=== PATIENT | female | born 1980 | race Caucasian/White ===

== ENCOUNTER 2018-05-09 17:45 | Emergency (ER) | payer BC, OTHER ==
[2018-05-09 18:00] VITALS: BP 119/66
--- NOTE | 2018-05-09 18:22 | UC ---
Brandon Dailey Elizabeth, scribed for Sherman Hagen MD on 05/09/18 at 1804 . Cardiac HPI - HPI Summary HPI Summary: This patient is a 38 year old F presenting to [facility] with a chief complaint of intermittent, non-radiation chest pressure since 3 days ago. The patient notes that the pain feels like someone is sitting on her chest. The patient rates the pain 3-4/10 in severity. Symptoms aggravated by nothing. Symptoms alleviated by nothing. Patient reports shortness of breath. Patient has hx of gestational diabetes but notes that she has not checked her glucose level in several years. - History of Current Complaint Stated Complaint: CHEST PAIN Hx Obtained From: Patient Hx Last Menstrual Period: [id number] Onset/Duration: Gradual Onset, Lasting Days - 3 days, Still Present Timing: Intermittent Episodes Lasting: Initial Severity: Mild Current Severity: Mild Pain Intensity: 4 Character: Pressure/Squeezing Aggravating Factor(s): Nothing Alleviating Factor(s): Nothing Associated Signs & Symptoms: Positive: SOB - Allergy/Home Medications Allergies/Adverse Reactions: Allergies Allergy/AdvReac Type Severity Reaction Status Date / Time No Known Allergies Allergy Verified 05/09/18 18:00 PMH/Surg Hx/FS Hx/Imm Hx Endocrine History: Diabetes Other Endocrine History: gestational diabetes Other History Of: Negative For: Anticoagulant Therapy - Surgical History Surgical History: Yes Surgery Procedure, Year, and Place: X2, gastric sleve 11/2015 - Family History Known Family History: Positive: Hypertension, Diabetes - Social History Alcohol Use: Weekly Substance Use Type: None Smoking Status (MU): Light Every Day Tobacco Smoker Have You Smoked in the Last Year: No When Did the Patient Quit Smoking/Using Tobacco: 2013 - Immunization History Most Recent Influenza Vaccination: 2014 Most Recent Tetanus Shot: UP TO DATE Most Recent Pneumonia Vaccination: UNSURE Review of Systems Constitutional: Negative - NEGATIVE FEVER Respiratory: Shortness Of Breath Cardiovascular: Chest Pain Gastrointestinal: Negative - NEGATIVE VOMITING All Other Systems Reviewed And Are Negative: Yes Physical Exam - Summary Physical Exam Summary: VITAL SIGNS: Reviewed. GENERAL: Patient is a well-developed and nourished FEMALE who is lying comfortable in the stretcher. Patient is not in any acute respiratory distress. Patient is obese. HEAD AND FACE: Normocephalic EYES: PERRLA, EOMI x 2. EARS: Hearing grossly intact. MOUTH: Oropharynx within normal limits. NECK: Supple, trachea is midline, no adenopathy, no JVD, no carotid bruit. CHEST: Symmetric, no tenderness at palpation LUNGS: Clear to auscultation bilaterally. No wheezing or crackles. CVS: Regular rate and rhythm, S1 and S2 present, no murmurs or gallops appreciated. ABDOMEN: Soft, non-tender. Bowel sounds are normal. No abdominal abnormal pulsations. EXTREMITIES: Full ROM in all major joints, no edema, no cyanosis or clubbing. NEURO: Alert and oriented x 3. No acute neurological deficits. Speech is normal and follows commands. SKIN: Dry and warm Triage Information Reviewed: Yes Vital Signs: Initial Vital Signs Temp 97.0 F 05/09/18 17:55 Pulse 72 05/09/18 17:55 Resp 16 05/09/18 17:55 BP 119/66 05/09/18 17:55 Pulse Ox 100 05/09/18 17:55 Vital Signs Reviewed: Yes Diagnostics - EKG Cardiac Rate: NL - at 74 bpm Cardiac Rhythm: Sinus: Normal - NSR, no ST elevation, no change from EKG on 02/02 ST Segment: Normal - Assessment/Plan Course Of Treatment: 38-year-old female presents to the urgent care with a chief complaint of having chest pain. She reports that more than chest pain is chest pressure. She reports that is that someone is sitting on top of her chest. EKG shows a normal sinus rhythm without any ST elevations. She is obese , she does history of gestational diabetes and gastric bypass. Because the patient's symptoms have been persistent intermittently for the last 3 days I refer the patient to the emergency department for further workup and management. Patient declines ambulance transport. Patient is hemodynamically stable. - Differential Diagnoses - Chest Pain Differential Diagnosis/HQI/PQRI: Acute LA, ACS, Angina, CHF, Chest Wall, GI Disease, Lower Respiratory Infection - Clinical Impression Provider Diagnoses: Chest pain rule out acute coronary syndrome. Discharge - Sign-Out/Discharge Documenting (check all that apply): Discharge/Admit/Transfer - Discharge Plan Condition: Stable Disposition: HOME Discharge Disposition Comment: discharge home Patient Education Materials: Chest Pain (ED) Referrals: Kyle Bhandari MD [Primary Care Provider] - Additional Instructions: Patient will be discharged to the emergency department. The patient declined ambulance transfer. - Billing Disposition and Condition Condition: STABLE Disposition: Home The documentation as recorded by the Brandon alejandra Elizabeth accurately reflects the service I personally performed and the decisions made by me, Sherman Hagen MD.
== END 2018-05-09 18:09 | disposition home or self-care (01) ==
LOC: UCEAST 17:45
DX: R07.89 Other chest pain (principal); R06.02 Shortness of breath; Z86.32 Personal history of gestational diabetes; Z87.891 Personal history of nicotine dependence; Z82.49 Family history of ischemic heart disease and other diseases of the circulatory system; Z83.3 Family history of diabetes mellitus
CPT/HCPCS: 93005; 99212; G0463

== ENCOUNTER 2018-05-09 18:23 | Emergency (ER) | payer BC ==
[2018-05-09] MEDS ORDERED: Famotidine TAB* 20 MG PO ONE (18:56)
[2018-05-09 19:00] LABS: ABS Basophils 0.1 10^3/ul (0-0.2); ABS Eosinophils 0.1 10^3/ul (0-0.6); ABS Lymphocytes 1.9 10^3/ul (1.0-4.8); ABS Monocytes 0.5 10^3/ul (0-0.8); ABS Neutrophils 4.6 10^3/ul (1.5-7.7); ABS Nucleated RBC 0 10^3/ul; Eosinophil % 1.8 % (0-6); Hematocrit 36 % (35-47); Hemoglobin 11.7 g/dl (12.0-16.0); Lymphocyte % 26.5 % (25-47); Mean Corpuscular HGB Conc 33 g/dl (31-36); Mean Corpuscular Hemoglobin 27 pg (27-31); Mean Corpuscular Volume 82 fL (80-97); Mean Platelet Volume 9.3 um3 (7.4-10.4); Nucleated Red Blood Cells % 0; Platelet Count 213 10^3/ul (150-450); Red Blood Count 4.38 10^6/ul (4.00-5.40); Red Cell Distribution Width 15 % (10.5-15); White Blood Count 7.2 10^3/ul (3.5-10.8)
[2018-05-09] MEDS ORDERED: Aspirin 81 mg CHEW TAB* 81 MG TAB.CHEW PO ONE (19:03)
[2018-05-09 19:23] LABS: EGFR Non-African American 88.8 (>60)
--- NOTE | 2018-05-09 19:25 | RAD ---
INDICATION: Chest pain onset 3 days ago worse today midsternal; sensation of intense heartburn and pressure. COMPARISON: November 25, 2015 TECHNIQUE: Dual energy PA and routine lateral views of the chest were obtained. REPORT: Clear lungs and pleural spaces. Negative for pneumothorax. The heart, pulmonary vasculature, and mediastinal contours are unremarkable. Unremarkable osseous structures and soft tissue contours. IMPRESSION: No evidence for acute intrathoracic disease.
[2018-05-09] MEDS ORDERED: Lidocaine 2% VISCOUS* 15 ML UDC PO ONE (21:33)
[2018-05-09] MEDS ORDERED: Al Hydrox/Mg Hydrox/Simet LIQ* 30 ML UDC PO ONE (21:33)
--- NOTE | 2018-05-09 21:54 | ED ---
HPI Chest Pain - HPI Summary HPI Summary: 38-year-old female presents with chest pressure last 3 days. She states it feels like something is on her chest. She's never had this before. She states she feels anxious. She denies any palpitations. She admits to occasional shortness breath. She states the pain has persisted. States that Tums have helped. Has history of GERD. Also has history of a gastric sleeve. Denies any belly pain. No nausea or vomiting. Chest pressure does not radiate anywhere. It changes with positional changes. She has not tried anything for the pain. No family history of cardiac disease. No pain or swelling in her calf muscles. - History of Current Complaint Chief Complaint: EDChestPainROMI Time Seen by Provider: 05/09/18 18:36 Hx Last Menstrual Period: [id number] Pain Intensity: 5 - Additional Pertinent History Primary Care Physician: [id number] - Allergy/Home Medications Allergies/Adverse Reactions: Allergies Allergy/AdvReac Type Severity Reaction Status Date / Time No Known Allergies Allergy Verified 05/09/18 18:32 Home Medications: Home Medications FLUoxetine CAP* [PROzac CAP*] 60 mg PO DAILY 05/09/18 [History Confirmed ] PMH/Surg Hx/FS Hx/Imm Hx Endocrine/Hematology History: Reports: Hx Diabetes - GESTATIONAL DM Denies: Hx Anticoagulant Therapy, Hx Thyroid Disease Cardiovascular History: Denies: Hx Hypertension, Hx Pacemaker/ICD Respiratory History: Denies: Hx Asthma, Hx Chronic Obstructive Pulmonary Disease (COPD) GI History: Denies: Hx Ulcer History: Denies: Hx Renal Disease Sensory History: Reports: Hx Contacts or Glasses - GLASSES Denies: Hx Hearing Aid Opthamlomology History: Reports: Hx Contacts or Glasses - GLASSES Neurological History: Denies: Hx Dementia, Hx Seizures Psychiatric History: Reports: Hx Anxiety, Hx Depression Denies: Hx Substance Abuse - Surgical History Surgery Procedure, Year, and Place: X2, gastric sleve 11/2015 Hx Anesthesia Reactions: No - Immunization History Immunizations Up to Date: Yes Infectious Disease History: No Infectious Disease History: Reports: Hx Shingles Denies: Hx Hepatitis, Hx Human Immunodeficiency Virus (HIV), Traveled Outside the [place] in Last 30 Days - Family History Known Family History: Positive: Hypertension, Diabetes - Social History Alcohol Use: Weekly Substance Use Type: Reports: None Smoking Status (MU): Light Every Day Tobacco Smoker Have You Smoked in the Last Year: No Review of Systems Negative: Fever Positive: Chest Pain Negative: Shortness Of Breath, Cough All Other Systems Reviewed And Are Negative: Yes Physical Exam Triage Information Reviewed: Yes Vital Signs On Initial Exam: Initial Vitals Temp Pulse Resp BP Pulse Ox 98.3 F 67 13 119/75 100 05/09/18 18:25 05/09/18 18:25 05/09/18 18:25 05/09/18 18:25 05/09/18 18:25 Vital Signs Reviewed: Yes Appearance: Positive: Well-Appearing Skin: Positive: Warm, Dry Head/Face: Positive: Normal Head/Face Inspection Eyes: Positive: Normal, EOMI, JELENA, Conjunctiva Clear ENT: Positive: Normal ENT inspection, Pharynx normal, TMs normal Respiratory/Lung Sounds: Positive: Clear to Auscultation, Breath Sounds Present , Other - nontender chest wall Cardiovascular: Positive: Normal, RRR Abdomen Description: Positive: Nontender, Soft Bowel Sounds: Positive: Present Musculoskeletal: Positive: Normal Neurological: Positive: Normal Psychiatric: Positive: Normal Diagnostics - Vital Signs Vital Signs Temp Pulse Resp BP Pulse Ox 05/09/18 21:05 98.1 F 86 18 119/72 99 05/09/18 18:25 98.3 F 67 13 119/75 100 - Laboratory Lab Results: Lab Results 05/09/18 05/09/18 05/09/18 Range/Units 18:53 18:53 18:53 WBC 7.2 (3.5-10.8) 10^3/ul RBC 4.38 (4.00-5.40) 10^6/ul Hgb 11.7 L (12.0-16.0) g/dl Hct 36 (35-47) % MCV 82 (80-97) fL MCH 27 (27-31) pg MCHC 33 (31-36) g/dl RDW 15 (10.5-15) % Plt Count 213 (150-450) 10^3/ul MPV 9.3 (7.4-10.4) um3 Neut % (Auto) 64.0 (38-83) % Lymph % (Auto) 26.5 (25-47) % [place] % (Auto) 7.0 (0-7) % Eos % (Auto) 1.8 (0-6) % Baso % (Auto) 0.7 (0-2) % Absolute Neuts (auto) 4.6 (1.5-7.7) 10^3/ul Absolute Lymphs (auto) 1.9 (1.0-4.8) 10^3/ul Absolute Monos (auto) 0.5 (0-0.8) 10^3/ul Absolute Eos (auto) 0.1 (0-0.6) 10^3/ul Absolute Basos (auto) 0.1 (0-0.2) 10^3/ul Absolute Nucleated RBC 0 10^3/ul Nucleated RBC % 0 D-Dimer, Quantitative < 200 (Less Than 230) ng/mL Sodium 136 (135-145) mmol/L Potassium 3.6 (3.5-5.0) mmol/L Chloride 102 (101-111) mmol/L Carbon Dioxide 26 (22-32) mmol/L Anion Gap 8 (2-11) mmol/L BUN 13 (6-24) mg/dL Creatinine 0.74 (0.51-0.95) mg/dL Est GFR ( Amer) 114.2 (>60) Est GFR (Non-Af Amer) 88.8 (>60) BUN/Creatinine Ratio 17.6 (8-20) Glucose 94 (70-100) mg/dL Calcium 9.3 (8.6-10.3) mg/dL Total Bilirubin 0.30 (0.2-1.0) mg/dL AST 15 (13-39) U/L ALT 10 (7-52) U/L Alkaline Phosphatase 64 (34-104) U/L Troponin I 0.00 (<0.04) ng/mL C-Reactive Protein 4.56 (< 5.00) mg/L B-Natriuretic Peptide ( - 100) pg/mL Total Protein 6.9 (6.4-8.9) g/dL Albumin 3.8 (3.2-5.2) g/dL Globulin 3.1 (2-4) g/dL Albumin/Globulin Ratio 1.2 (1-3) /18 Range/Units 18:53 WBC (3.5-10.8) 10^3/ul RBC (4.00-5.40) 10^6/ul Hgb (12.0-16.0) g/dl Hct (35-47) % MCV (80-97) fL MCH (27-31) pg MCHC (31-36) g/dl RDW (10.5-15) % Plt Count (150-450) 10^3/ul MPV (7.4-10.4) um3 Neut % (Auto) (38-83) % Lymph % (Auto) (25-47) % [place] % (Auto) (0-7) % Eos % (Auto) (0-6) % Baso % (Auto) (0-2) % Absolute Neuts (auto) (1.5-7.7) 10^3/ul Absolute Lymphs (auto) (1.0-4.8) 10^3/ul Absolute Monos (auto) (0-0.8) 10^3/ul Absolute Eos (auto) (0-0.6) 10^3/ul Absolute Basos (auto) (0-0.2) 10^3/ul Absolute Nucleated RBC 10^3/ul Nucleated RBC % D-Dimer, Quantitative (Less Than 230) ng/mL Sodium (135-145) mmol/L Potassium (3.5-5.0) mmol/L Chloride (101-111) mmol/L Carbon Dioxide (22-32) mmol/L Anion Gap (2-11) mmol/L BUN (6-24) mg/dL Creatinine (0.51-0.95) mg/dL Est GFR ( Amer) (>60) Est GFR (Non-Af Amer) (>60) BUN/Creatinine Ratio (8-20) Glucose (70-100) mg/dL Calcium (8.6-10.3) mg/dL Total Bilirubin (0.2-1.0) mg/dL AST (13-39) U/L ALT (7-52) U/L Alkaline Phosphatase (34-104) U/L Troponin I (<0.04) ng/mL C-Reactive Protein (< 5.00) mg/L B-Natriuretic Peptide 14 ( - 100) pg/mL Total Protein (6.4-8.9) g/dL Albumin (3.2-5.2) g/dL Globulin (2-4) g/dL Albumin/Globulin Ratio (1-3) Result Diagrams: 06/18/18 18:53 05/09/18 18:53 Lab Statement: Any lab studies that have been ordered have been reviewed, and results considered in the medical decision making process. - Radiology chest Xray Interpretation: No Acute Changes Radiology Interpretation Completed By: Radiologist - EKG No standard instances Cardiac Rate: NL EKG Rhythm: Sinus Rhythm EKG Interpretation: sinus rhythm EKG Comparison: No Significant Change Re-Evaluation - Re-Evaluation First Eval Re-Evaluation Time: 19:45 Change: Improved Comment: feeling better after pepcid Chest Pain Course/Dx - Course Course Of Treatment: 38-year-old female presents with chest pressure last 3 days. She states it feels like something is on her chest. She's never had this before. She states she feels anxious. She denies any palpitations. She admits to occasional shortness breath. She states the pain has persisted. States that Tums have helped. Has history of GERD. Also has history of a gastric sleeve. Denies any belly pain. No nausea or vomiting. Chest pressure does not radiate anywhere. It changes with positional changes. She has not tried anything for the pain. No family history of cardiac disease. No pain or swelling in her calf muscles. On exam lungs clear to auscultation. Nontender chest. EKG normal. Chest x-ray normal. Labs within normal limits. 2 troponins negative. Gave him Pepcid and feeling better. Explained likely related to GERD. We'll prescribe Pepcid. Patient understands agrees with plan. - Chest Pain Differential Diagnosis/HQI/PQRI: Chest Wall, GI Disease, Lower Respiratory Infection, Pulmonary Embolism - Diagnoses Provider Diagnoses: Chest pain Discharge - Sign-Out/Discharge Documenting (check all that apply): Discharge/Admit/Transfer - Discharge Plan Condition: Good Disposition: HOME Prescriptions: Famotidine TAB* [Pepcid 20 MG TAB*] 20 mg PO BID #20 tab Patient Education Materials: Noncardiac Chest Pain (ED) Referrals: Kyle Bhandari MD [Primary Care Provider] - Additional Instructions: take pepcid twice a day Take tyenlol or ibuprofen eveyr 6 hours as needed for pain Follow up with primary within 5 days Return to ED if develop any new or worsening symptoms - Billing Disposition and Condition Condition: GOOD Disposition: Home
[2018-05-09 22:15] VITALS: BP 118/74
== END 2018-05-09 22:14 | disposition home or self-care (01) ==
LOC: ED 18:23
DX: R07.89 Other chest pain (principal); R06.02 Shortness of breath; K21.9 Gastro-esophageal reflux disease without esophagitis; Z86.32 Personal history of gestational diabetes; F41.9 Anxiety disorder, unspecified; F32.9 Major depressive disorder, single episode, unspecified; Z98.84 Bariatric surgery status; Z82.49 Family history of ischemic heart disease and other diseases of the circulatory system; Z83.3 Family history of diabetes mellitus; F17.200 Nicotine dependence, unspecified, uncomplicated
CPT/HCPCS: 36415; 71046; 80053; 83880; 84484; 85025; 85379; 86140; 93005; 99283; A9270-GY

== ENCOUNTER 2018-05-10 00:42 | Emergency (ER) | payer BC ==
[2018-05-10] MEDS ORDERED: Cyclobenzaprine TAB* 10 MG PO ONE (01:46)
[2018-05-10 02:33] VITALS: BP 97/58
--- NOTE | 2018-05-10 03:56 | ED ---
Geoffrey Dailey Tariq, scribed for Thang Martinez MD on 05/10/18 at 0143 . HPI Chest Pain - HPI Summary HPI Summary: A 38 y/o female presents to the ED c/o chest pain. Earlier today at home, pt noticed mild chest pain, however the pain became more worse during sleep, as she was turning/tossing in bed. Additionally Sx include SOB. She was D/C from ER a couple hours ago, but returns with same Sx of CP. Pt describes the pain as "unbearable pain, uncomfortable". To alleviate pain, pt took 4 ibuprofen, currently feels better but doesn't "feel 100%". Turning head to right and deep breathes aggravates the Sx. - History of Current Complaint Chief Complaint: EDChestWallPain Time Seen by Provider: 05/10/18 01:28 Hx Obtained From: Patient Hx Last Menstrual Period: [id number] Onset/Duration: Started Hours Ago, Still Present, Worse Since Timing: Constant, Lasting Hours Initial Severity: Mild Current Severity: Moderate Pain Intensity: 5 Pain Scale Used: 0-10 Numeric Chest Pain Location: Mid Sternal Aggravating Factor(s): Movement, Deep Breaths Alleviating Factor(s): Nothing Associated Signs and Symptoms: Positive: Chest Pain, Shortness of Breath - Additional Pertinent History Primary Care Physician: [id number] - Allergy/Home Medications Allergies/Adverse Reactions: Allergies Allergy/AdvReac Type Severity Reaction Status Date / Time No Known Allergies Allergy Verified 05/09/18 18:32 PMH/Surg Hx/FS Hx/Imm Hx Endocrine/Hematology History: Reports: Hx Diabetes - GESTATIONAL DM Denies: Hx Anticoagulant Therapy, Hx Thyroid Disease Cardiovascular History: Denies: Hx Hypertension, Hx Pacemaker/ICD Respiratory History: Denies: Hx Asthma, Hx Chronic Obstructive Pulmonary Disease (COPD) GI History: Denies: Hx Ulcer History: Denies: Hx Renal Disease Sensory History: Reports: Hx Contacts or Glasses - GLASSES Denies: Hx Hearing Aid Opthamlomology History: Reports: Hx Contacts or Glasses - GLASSES Neurological History: Denies: Hx Dementia, Hx Seizures Psychiatric History: Reports: Hx Anxiety, Hx Depression Denies: Hx Substance Abuse - Surgical History Surgery Procedure, Year, and Place: X2, gastric sleve 11/2015 Hx Anesthesia Reactions: No Infectious Disease History: No Infectious Disease History: Reports: Hx Shingles Denies: Hx Hepatitis, Hx Human Immunodeficiency Virus (HIV), Traveled Outside the [place] in Last 30 Days - Family History Known Family History: Positive: Hypertension, Diabetes - Social History Alcohol Use: Weekly Substance Use Type: Reports: None Smoking Status (MU): Light Every Day Tobacco Smoker Have You Smoked in the Last Year: No Review of Systems Negative: Fever Positive: Chest Pain Positive: Shortness Of Breath All Other Systems Reviewed And Are Negative: Yes Physical Exam - Summary Physical Exam Summary: Appearance: Well appearing, no pain distress Skin: warm, dry, reflects adequate perfusion Head/face: normal Eyes: EOMI, JELENA ENT: normal Neck: supple, non-tender Respiratory: mild wheezing left base Cardiovascular: RRR, pulses symmetrical, tenderness with palpation on right sternal border Abdomen: non-tender, soft Bowel Sounds: present Musculoskeletal: normal, strength/ROM intact Neuro: normal, sensory motor intact, A&Ox3 Triage Information Reviewed: Yes Vital Signs On Initial Exam: Initial Vitals Temp Pulse Resp BP Pulse Ox 97.4 F 89 16 129/86 100 05/10/18 00:44 05/10/18 00:44 05/10/18 00:44 05/10/18 00:44 05/10/18 00:44 Vital Signs Reviewed: Yes Diagnostics - Vital Signs Vital Signs Temp Pulse Resp BP Pulse Ox 05/10/18 00:44 97.4 F 89 16 129/86 100 - Laboratory Lab Statement: Any lab studies that have been ordered have been reviewed, and results considered in the medical decision making process. Chest Pain Course/Dx - Course Course Of Treatment: Patient had a full evaluation earlier in the day for same complaint. D-dimer, troponin 2, chest x-ray all negative. Patient states she was treated for GI cause however her pain returned after she returned home. She states that hurts when she moves and takes deep breaths. She took ibuprofen which largely resolved her discomfort. She does have some reproducible tenderness in the right side of the costosternal junction. Likely costochondritis. Added muscle relaxant and will continue NSAID. - Chest Pain Differential Diagnosis/HQI/PQRI: Chest Wall, GI Disease - Diagnoses Provider Diagnoses: Atypical chest pain, Costochondritis Discharge - Sign-Out/Discharge Documenting (check all that apply): Discharge/Admit/Transfer - Discharge - Discharge Plan Condition: Good Disposition: HOME Prescriptions: Cyclobenzaprine (NF) [Cyclobenzaprine 5 MG (NF)] 5 mg PO TID PRN #10 tab PRN Reason: chest wall pain Patient Education Materials: Costochondritis (ED) Forms: *Work Release Referrals: Kyle Bhandari MD [Primary Care Provider] - Additional Instructions: Ibuprofen as needed. Avoid heavy lifting. Deep breathing exercises every half hour. Return with fever, trouble breathing, worse or other concerns. - Billing Disposition and Condition Condition: GOOD Disposition: Home The documentation as recorded by the Geoffrey alejandra Tariq accurately reflects the service I personally performed and the decisions made by Juan singleton Kirk, MD.
== END 2018-05-10 02:31 | disposition home or self-care (01) ==
LOC: ED 00:42
DX: R07.89 Other chest pain (principal); M94.0 Chondrocostal junction syndrome [Tietze]; F17.200 Nicotine dependence, unspecified, uncomplicated
CPT/HCPCS: 99282; A9270-GY

== ENCOUNTER 2019-02-04 12:17 | Emergency (ER) | payer BC, MEDICAID ==
--- NOTE | 2019-02-04 13:16 | UC ---
Knee Pain HPI - HPI Summary HPI Summary: 38 y/o female presents to the urgent care c/o left knee pain s/p falling at her porch last night aroun 2030pm. Pt reports she was drinking last night and she slipped on a wet leaf and hit her left knee. She was able to bear weight last night. However this morning, she woke up and pain was worse. He took Ibuprofen 400mg PO to alleviate symptoms. Now she is walking w/ the help of a cane. Pain now is 8/10 w/ certain movements, special on the medial aspect of the knee w/o any radiation. Pt denies previous injury, numbness or tingling sensation over the left leg, calf pain, SOB, chest pain, abdominal pain, N/V/D. - History of Current Complaint Chief Complaint: UCLowerExtremity Stated Complaint: LT LEG INJURY Time Seen by Provider: 02/04/19 13:15 Hx Obtained From: Patient Hx Last Menstrual Period: 01/11/19 Onset/Duration: Gradual Onset, Lasting Days - 1 day, Still Present, Worse Since - this morning Severity Initially: Moderate Severity Currently: Moderate Pain Intensity: 8 Pain Scale Used: 0-10 Numeric Character: Sharp Aggravating Factor(s): Prolonged Standing, Stairs Alleviating Factor(s): Rest, OTC Meds - ibuprofen 400mg PO this morning aroun 0600AM Associated Signs And Symptoms: Positive: Swelling - mild. Negative: Redness, Bruising, Fever, Weakness, Numbness, Tingling Able to Bear Weight: Yes - Risk Factors Septic Arthritis Risk Factor: Negative Gout Risk Factor: Negative - Allergies/Home Medications Allergies/Adverse Reactions: Allergies Allergy/AdvReac Type Severity Reaction Status Date / Time No Known Allergies Allergy Verified 02/04/19 12:54 PMH/Surg Hx/FS Hx/Imm Hx Previously Healthy: Yes Psychological History: Anxiety, Depression Other History Of: Negative For: Anticoagulant Therapy - Surgical History Surgical History: Yes Surgery Procedure, Year, and Place: X2, gastric sleve 11/2015 - Family History Known Family History: Positive: Hypertension, Diabetes - Social History Occupation: Employed Full-time Lives: With Family Alcohol Use: Occasionally Substance Use Type: None Smoking Status (MU): Light Every Day Tobacco Smoker Have You Smoked in the Last Year: No When Did the Patient Quit Smoking/Using Tobacco: 2014 - Immunization History Most Recent Influenza Vaccination: 2014 Most Recent Tetanus Shot: UP TO DATE Most Recent Pneumonia Vaccination: UNSURE Review of Systems All Other Systems Reviewed And Are Negative: Yes Constitutional: Positive: Negative Skin: Positive: Negative Eyes: Positive: Negative ENT: Positive: Negative Respiratory: Positive: Negative Cardiovascular: Positive: Negative Gastrointestinal: Positive: Negative Genitourinary: Positive: Negative Motor: Positive: Negative Neurovascular: Positive: Negative Musculoskeletal: Positive: Decreased ROM - left knee, Other: - left kne pain s/ p fall w/ mild swelling Neurological: Positive: Negative Psychological: Positive: Negative Is Patient Immunocompromised?: No Physical Exam - Summary Physical Exam Summary: Vital Signs Reviewed: Yes General: well developed, well nourished morbid obese female male sitting in the examining table w/o any apparent pain distress Eyes: Positive: Conjunctiva Clear - PERRLA, EOMI, fundi grossly normal ENT: Positive: Normal ENT inspection, Hearing grossly normal, Pharynx normal, TMs normal Neck: Positive: Supple, Nontender, No Lymphadenopathy Respiratory: Positive: Chest nontender, Lungs clear, Normal breath sounds, No respiratory distress Cardiovascular: Positive: RRR, No Murmur, Pulses Normal, Brisk Capillary Refill Abdomen Description: Positive: Nontender, No Organomegaly, Soft. Negative: CVA Tenderness (R), CVA Tenderness (L) Bowel Sounds: Positive: Present Musculoskeletal: Positive: Strength Intact, No Edema, left Knee: Pt is able to bear weight and ambulate with limping. No surface trauma, soft tissue swelling , or obvious effusion. No overlying erythema or warmth. The L knee is without obvious asymmetry or deformity when compared with the R knee. Decreased ROM of LF knee due to pain. No tenderness to palpation of the patella, no effusion or ballottement. No tenderness over the infrapatellar tendon. Point tenderness over the medial joint line, No tenderness over the medial or lateral tibial plateaus. No tenderness over the proximal fibular head, No tenderness, fullness or mass of the popliteal fossa. No quadriceps tenderness. No laxity of the ACL. PCL, MCL, or LCL. no collateral ligament laxity to valgus or varus stress. Negative Allie/Drawer sign. Negative Juan Antonio. Distal motor and neurovascular status intact. Neurological Exam: Normal Psychological Exam: Normal Skin Exam: Normal Triage Information Reviewed: Yes Vital Signs: Initial Vital Signs Temp 98.4 F 02/04/19 12:50 Pulse 92 02/04/19 12:50 Resp 18 02/04/19 12:50 BP 131/93 02/04/19 12:50 Pulse Ox 99 02/04/19 12:50 Knee Pain Course/Dx - Course Course Of Treatment: 38 y/o female presents to the urgent care c/o left knee pain s/p falling at her porch last night aroun 2030pm. Pt reports she was drinking last night and she slipped on a wet leaf and hit her left knee. She was able to bear weight last night. However this morning, she woke up and pain was worse. He took Ibuprofen 400mg PO to alleviate symptoms. Now she is walking w/ the help of a cane. Pain now is 8/10 w/ certain movements, special on the medial aspect of the knee w/o any radiation. Pt denies previous injury, numbness or tingling sensation over the left leg, calf pain, SOB, chest pain, abdominal pain, N/V/D. Hx obtained. LF knee X-ray ordered, Impression:Small knee effusion. No fracture or traumatic misalignment. Pt most likely with a RT knee Sprain. Pt knee immobilized with LOVE bandage and knee immobilizer. Pt Rx Ibuprofen PO to alleviate symptoms and advised to continue using her cane to ambulate. Pt advised RICE, take medication for pain and to f/u with her Orthopedic DR Carlson in 2- days for further treatment. Pt's BP is elevated today advised to decrease salt in diet, monitor BP and f/u with PCP for further management. D/C instructions explained. Pt understood and agreed and left the clinic ambulating. - Differential Dx/Diagnosis Differential Diagnosis/HQI/PQRI: Contusion, Dislocation, Fracture (Closed), Patellofemoral Syndrome, Sprain, Strain, Tendonitis, Other - arthritis Provider Diagnosis: Left knee pain, Sprain of left knee, Elevated BP without diagnosis of hypertension Discharge - Sign-Out/Discharge Documenting (check all that apply): Patient Departure - d/c home All imaging exams completed and their final reports reviewed: Yes - Discharge Plan Condition: Stable Disposition: HOME Prescriptions: Ibuprofen TAB* [Motrin TAB* 800 MG] 800 mg PO Q6H PRN #30 tab PRN Reason: knee pain Patient Education Materials: Knee Sprain (ED), Low-Sodium Diet (ED) Forms: *Work Release Referrals: Rohit Carlson MD [Medical Doctor] - 3 Days Kyle Bhandari MD [Primary Care Provider] - 3 Days Additional Instructions: 1-Please take Ibuprofen PO q6-8hrs prn after meals as directed to alleviate pain and swelling. 2-Please apply ice, keep your knee immobilized with the knee inmobilizer and use your cane to help you ambulate. elevate your leg, avoid strenuous exercise or climbing stairs. 3- Please f/u with Orthopedic Dr Carlson in 3 day for further evaluation and treatment on the small effusion. 4- Your BP is elevated today. please decrease salt in your diet, monitor BP and if it continues to be elevated please f/u with your PCP for further management. - Billing Disposition and Condition Condition: STABLE Disposition: Home
[2019-02-04] MEDS ORDERED: Ibuprofen TAB* 400 MG PO ONE (13:39)
[2019-02-04 14:48] VITALS: BP 142/78
== END 2019-02-04 14:42 | disposition home or self-care (01) ==
LOC: UCEAST 12:17
DX: S83.92XA Sprain of unspecified site of left knee, initial encounter (principal); M25.562 Pain in left knee; R03.0 Elevated blood-pressure reading, without diagnosis of hypertension; F17.200 Nicotine dependence, unspecified, uncomplicated; W18.49XA Other slipping, tripping and stumbling without falling, initial encounter; Y92.9 Unspecified place or not applicable
CPT/HCPCS: 99213; A9270-GY; G0463